=== PATIENT | female | born 1960 | race Caucasian/White ===

== ENCOUNTER 2017-01-27 17:33 | Emergency (ER) | payer BC ==
[2012-10-24 15:46] VITALS: BMI 20.3
[~2017-01-27 17:33] MED LIST: CYMBALTA60 MG PO; KLONOPIN1 MG PO; LEVOTHROID75 MCG PO; PREMARIN1.25 MG PO; PRISTIQ50 MG PO; TOPROL XL25 MG PO
[2017-01-27 19:05] LABS: BASOPHILS 1.4 % (0-2); EOSINOPHILS 0.3 % (0-7); HEMATOCRIT 37.3 % (36.0-48.0); HEMOGLOBIN 12.2 g/dL (12-16); IMMATURE GRANULOCYTES 0.3 % (0-5); LYMPHOCYTES 49.6 % (15-50); MCH 30.5 pg (26.0-34.0); MCHC 32.7 g/dL (31.0-37.0); MCV 93.3 fL (80.0-100.0); MEAN PLATELET VOLUME 9.1 fL (7.4-10.4); MONOCYTES 11.7 % (2-11); NEUTROPHILS 36.7 % (40-80); PLATELET COUNT 151 10x3/uL (130-400); RDW 13.6 % (11.5-14.5)
== END 2017-01-27 19:53 | disposition home or self-care (01) ==
LOC: D.ER 17:33
PROVIDERS: Physician Assistant Medical
DX: J01.90 Acute sinusitis, unspecified (principal); I10 Essential (primary) hypertension

== ENCOUNTER 2017-07-27 12:22 | Emergency (ER) | payer BC ==
[2012-10-24 15:46] VITALS: BMI 20.3
[2017-07-27 13:01] LABS: BASOPHILS 0.4 % (0-2); EOSINOPHILS 2.1 % (0-7); HEMATOCRIT 40.3 % (36.0-48.0); HEMOGLOBIN 13.3 g/dL (12-16); IMMATURE GRANULOCYTES 0.3 % (0-5); LYMPHOCYTES 35.5 % (15-50); MCH 29.8 pg (26.0-34.0); MCV 90.4 fL (80.0-100.0); MEAN PLATELET VOLUME 9.4 fL (7.4-10.4); MONOCYTES 9.4 % (2-11); NEUTROPHILS 52.3 % (40-80); RBC 4.46 10x6/uL (4.00-5.40); RDW 15.6 % (11.5-14.5); WBC 7.1 10x3/uL (4.8-10.8)
[2017-07-27 13:03] LABS: PLATELET COUNT 214 10x3/uL (130-400)
[2017-07-27 13:13] LABS: ALBUMIN 3.8 g/dL (3.4-5.0); ALKALINE PHOSPHATASE 77 U/L (46-116); ALT (SGPT) 31 U/L (10-68); CALC OSMOLALITY 278 mosm/kg (275-300); CALCIUM 8.9 mg/dL (8.5-10.1); CARBON DIOXIDE 29.1 mmol/L (21.0-32.0); CHLORIDE - SERUM 104 mmol/L (98-107); CREATININE - SERUM 0.7 mg/dL (0.6-1.3); GLUCOSE 117 mg/dL (74-106); POTASSIUM - SERUM 4.1 mmol/L (3.5-5.1); PROTEIN - SERUM 7.5 g/dL (6.4-8.2); SODIUM 140 mmol/L (136-145); UREA NITROGEN 9 mg/dL (7-18); eGFR NON AFRICAN AMERICAN > 90 mL/min (90-120)
[2017-07-27 13:17] LABS: CREATINE KINASE 35 UL (21-215)
[2017-07-27 13:18] LABS: TROPONIN-I < 0.017 ng/mL (0.000-0.060)
== END 2017-07-27 17:04 | disposition home or self-care (01) ==
LOC: D.ER 12:22
PROVIDERS: Emergency Medicine
DX: M79.7 Fibromyalgia (principal)

== ENCOUNTER 2017-10-07 08:39 | Emergency (ER) | payer BC ==
[~2017-10-07] VITALS: Ht 165.1 cm; Wt 54.5 kg
[2017-10-07 08:54] VITALS: Ht 165.1 cm; Wt 54.5 kg
[2017-10-07 11:51] LABS: BASOPHILS 0.2 % (0-2); EOSINOPHILS 1.1 % (0-7); HEMATOCRIT 41.2 % (36.0-48.0); HEMOGLOBIN 13.6 g/dL (12-16); IMMATURE GRANULOCYTES 0.2 % (0-5); LYMPHOCYTES 22.8 % (15-50); MCH 30.8 pg (26.0-34.0); MCV 93.4 fL (80.0-100.0); MEAN PLATELET VOLUME 9.6 fL (7.4-10.4); MONOCYTES 11.5 % (2-11); NEUTROPHILS 64.2 % (40-80); PLATELET COUNT 193 10x3/uL (130-400); RBC 4.41 10x6/uL (4.00-5.40); RDW 13.2 % (11.5-14.5); WBC 8.3 10x3/uL (4.8-10.8)
[2017-10-07 12:03] LABS: ALBUMIN 3.3 g/dL (3.4-5.0); ALKALINE PHOSPHATASE 70 U/L (46-116); ALT (SGPT) 30 U/L (10-68); BILIRUBIN - TOTAL 0.32 mg/dL (0.2-1.3); CALC OSMOLALITY 285 mosm/kg (275-300); CARBON DIOXIDE 32.3 mmol/L (21.0-32.0); CHLORIDE - SERUM 107 mmol/L (98-107); CREATININE - SERUM 0.7 mg/dL (0.6-1.3); GLUCOSE 103 mg/dL (74-106); POTASSIUM - SERUM 3.9 mmol/L (3.5-5.1); SODIUM 144 mmol/L (136-145); UREA NITROGEN 11 mg/dL (7-18); eGFR NON AFRICAN AMERICAN > 90 mL/min (90-120)
[2017-10-07] MEDS ORDERED: MUPIROCIN22 GM TOPICAL (12:38)
[2017-10-07] MEDS ORDERED: CLEOCIN HCL300 MG PO (12:38)
[2017-10-07 13:13] VITALS: BP 135/86
== END 2017-10-07 13:14 | disposition home or self-care (01) ==
LOC: D.ER 08:39
PROVIDERS: Family Medicine
DX: S51.851A Open bite of right forearm, initial encounter (principal); W54.0XXA Bitten by dog, initial encounter; Y93.89 Activity, other specified; Y92.019 Unspecified place in single-family (private) house as the place of occurrence of the external cause; I10 Essential (primary) hypertension

== ENCOUNTER 2019-08-27 17:57 | Emergency (ER) | payer BC ==
[~2019-08-27] VITALS: Ht 165.1 cm; Wt 59.1 kg
[~2019-08-27 17:57] MED LIST changes: +CLEOCIN HCL300 MG PO; +MUPIROCIN22 GM TOPICAL
[2019-08-27 18:00] VITALS: Ht 165.1 cm; Wt 59.1 kg
[2019-08-27 18:56] VITALS: BP 126/74
== END 2019-08-27 18:56 | disposition home or self-care (01) ==
LOC: D.ER 17:57
DX: F41.9 Anxiety disorder, unspecified (principal); T38.0X5A Adverse effect of glucocorticoids and synthetic analogues, initial encounter; R00.2 Palpitations; E07.9 Disorder of thyroid, unspecified; I10 Essential (primary) hypertension; R06.02 Shortness of breath

== ENCOUNTER 2019-10-19 18:14 | Emergency (ER) | payer BC ==
[~2019-10-19] VITALS: Ht 165.1 cm; Wt 59.1 kg
[2019-10-19 18:19] VITALS: Ht 165.1 cm; Wt 59.1 kg
[2019-10-19] MEDS ORDERED: KEFLEX500 MG PO (18:21)
[2019-10-19 18:44] LABS: HEMATOCRIT 40.2 % (36.0-48.0); HEMOGLOBIN 13.6 g/dL (12-16); LYMPHOCYTES 40.1 % (15-50); MCH 31.1 pg (26.0-34.0); MCHC 33.8 g/dL (31.0-37.0); MEAN PLATELET VOLUME 8.9 fL (7.4-10.4); NEUTROPHILS 46.6 % (40-80); RBC 4.37 10x6/uL (4.00-5.40); RDW 12.6 % (11.5-14.5)
[2019-10-19 18:47] LABS: PLATELET COUNT 244 10x3/uL (130-400)
[2019-10-19 18:54] LABS: CALC OSMOLALITY 261 mosm/kg (275-300); CALCIUM 8.2 mg/dL (8.5-10.1); CARBON DIOXIDE 31.8 mmol/L (21.0-32.0); CHLORIDE - SERUM 96 mmol/L (98-107); CREATININE - SERUM 0.7 mg/dL (0.6-1.3); GLUCOSE 133 mg/dL (74-106); POTASSIUM - SERUM 4.4 mmol/L (3.5-5.1); SODIUM 129 mmol/L (136-145); UREA NITROGEN 16 mg/dL (7-18); eGFR NON AFRICAN AMERICAN > 90 mL/min (90-120)
[2019-10-19 19:01] LABS: APTT 26.2 SECONDS (22.8-39.4); INR 0.89 (0.85-1.17)
[2019-10-19 19:11] LABS: ALBUMIN 3.5 g/dL (3.4-5.0); ALKALINE PHOSPHATASE 66 U/L (30-120); ALT (SGPT) 28 U/L (10-68); BILIRUBIN - TOTAL 0.43 mg/dL (0.2-1.3); CKMB 1.3 U/L (0.0-3.6); CREATINE KINASE 45 UL (21-215); MAGNESIUM - SERUM 1.8 mg/dL (1.8-2.4); PROTEIN - SERUM 6.8 g/dL (6.4-8.2); TROPONIN-I < 0.017 ng/mL (0.000-0.060)
[2019-10-19] MEDS ORDERED: OMEPRAZOLE20 M1 PO (21:00)
[2019-10-19 21:21] VITALS: BP 143/75
== END 2019-10-19 21:22 | disposition home or self-care (01) ==
LOC: D.ER 18:14
PROVIDERS: Emergency Medicine
DX: K21.9 Gastro-esophageal reflux disease without esophagitis (principal); F41.9 Anxiety disorder, unspecified; E07.9 Disorder of thyroid, unspecified; I10 Essential (primary) hypertension; R06.02 Shortness of breath; R07.9 Chest pain, unspecified

== ENCOUNTER → 2019-11-29 11:40 | Outpatient (CLI) | payer BC ==
[2019-10-19 18:19] VITALS: BMI 21.6
[~2019-11-29 11:40] MED LIST changes: +KEFLEX500 MG PO; +OMEPRAZOLE20 M1 PO
== END | disposition home or self-care (01) ==
LOC: D.HCCECHO 11-21 10:30
PROVIDERS: ATTEND Internal Medicine Cardiovascular Disease
DX: R00.2 Palpitations (principal)

== ENCOUNTER 2020-06-14 12:52 | Emergency (ER) | payer BC ==
[~2020-06-14] VITALS: Ht 165.1 cm; Wt 55.3 kg
[2020-06-14 12:58] VITALS: Ht 165.1 cm; Wt 55.3 kg
[2020-06-14 14:12] LABS: BASOPHILS 0.4 % (0-2); EOSINOPHILS 4.2 % (0-7); HEMATOCRIT 42.1 % (36.0-48.0); HEMOGLOBIN 13.8 g/dL (12-16); IMMATURE GRANULOCYTES 0.2 % (0-5); LYMPHOCYTE ABS# 2.09 10x3/uL (1.18-3.74); LYMPHOCYTES 36.8 % (15-50); MCHC 32.8 g/dL (31.0-37.0); MCV 91.5 fL (80.0-100.0); MEAN PLATELET VOLUME 9.3 fL (7.4-10.4); MONOCYTES 11.4 % (2-11); NEUTROPHIL ABS# 2.67 10x3/uL (1.56-6.13); PLATELET COUNT 249 10x3/uL (130-400); RDW 13.6 % (11.5-14.5); WBC 5.7 10x3/uL (4.8-10.8)
[2020-06-14 14:20] LABS: CALC OSMOLALITY 277 mosm/kg (275-300); CALCIUM 8.5 mg/dL (8.5-10.1); CHLORIDE - SERUM 103 mmol/L (98-107); CREATININE - SERUM 0.8 mg/dL (0.6-1.3); GLUCOSE 94 mg/dL (74-106); POTASSIUM - SERUM 3.7 mmol/L (3.5-5.1); SODIUM 139 mmol/L (136-145); UREA NITROGEN 12 mg/dL (7-18); eGFR NON AFRICAN AMERICAN 77 mL/min (90-120)
[2020-06-14 14:26] LABS: ALBUMIN 3.3 g/dL (3.4-5.0); ALKALINE PHOSPHATASE 88 U/L (30-120); ALT (SGPT) 28 U/L (10-68); BILIRUBIN - TOTAL 0.34 mg/dL (0.2-1.3); LIPASE 109 U/L (73-393); MAGNESIUM - SERUM 2.1 mg/dL (1.8-2.4); PROTEIN - SERUM 6.6 g/dL (6.4-8.2)
[2020-06-14 15:36] LABS: BILIRUBIN NEGATIVE (NEGATIVE); KETONE NEGATIVE (NEGATIVE); NITRITE NEGATIVE (NEGATIVE); UROBILINOGEN NORMAL mg/dL (< 2)
[2020-06-14] MEDS ORDERED: FLAGYL500 MG PO (15:38)
[2020-06-14] MEDS ORDERED: CIPRO500 MG PO (15:38)
[2020-06-14] MEDS ORDERED: CHRONULAC30 ML PO (15:38)
[2020-06-14] MEDS ORDERED: ZOFRAN ODT4 MG/UDTAB PO (15:38)
[2020-06-14 16:16] VITALS: BP 145/64
== END 2020-06-14 16:33 | disposition home or self-care (01) ==
LOC: D.ER 12:52
PROVIDERS: Emergency Medicine
DX: K52.9 Noninfective gastroenteritis and colitis, unspecified (principal); K59.00 Constipation, unspecified; I10 Essential (primary) hypertension